=== PATIENT | male | born 2000 | race American Indian/Alaskan Native ===

== ENCOUNTER 2019-06-20 16:47 | Emergency (ER) | payer SELFPAY ==
[2019-06-20] MEDS ORDERED: TETANUS,DIPH,PERTUSS(ACELL) VACCINE 0.5 ML SYRINGE IM ONE (16:54)
[2019-06-20] MEDS ORDERED: SODIUM CHLORIDE 0.9% 500 ML 500 ML IV ONE (16:54)
[2019-06-20] MEDS ORDERED: MORPHINE 2 MG/1 ML INJ IV ONE (16:54)
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
[2019-06-20 16:57] VITALS: BP 120/78
[2019-06-20 17:13] LABS: Hematocrit 43.2 % (35.5-45.6); Hemoglobin 14.7 gm/dl (11.8-15.2); Mean Corpuscular HGB Conc 34 % (32-34); Mean Corpuscular Volume 78 fl (84-94); Platelet Count 277 K/mm3 (140-440); Red Blood Count 5.51 M/mm3 (3.65-5.03); Red Cell Distribution Width 13.7 % (13.2-15.2)
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
[2019-06-20 17:28] LABS: BUN/Creatinine Ratio 12; Blood Urea Nitrogen 11 mg/dL (9-20); Calcium 9.4 mg/dL (8.4-10.2); Hemolysis Index 47
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
[2019-06-20 17:30] LABS: INR 1.08 (0.87-1.13)
[2019-06-20] MEDS ORDERED: POTASSIUM CHLORIDE 10 MEQ 10 MEQ/100 ML BAG IV SCH (18:00)
== END 2019-06-20 18:03 | disposition short-term general hospital (02) ==
LOC: ED 16:47
DX: S61.401A Unspecified open wound of right hand, initial encounter (principal); S71.102A Unspecified open wound, left thigh, initial encounter; W34.00XA Accidental discharge from unspecified firearms or gun, initial encounter; Y93.89 Activity, other specified; Y92.89 Other specified places as the place of occurrence of the external cause; Y99.8 Other external cause status
CPT/HCPCS: 36415; 71045; 72170; 73100; 73552; 80048; 82550; 85027; 85610; 86850; 86900; 86901; 90471; 90715; 96365; 96375; 99285; J0690; J2270; J7040